=== PATIENT | female | born 1955 | race Caucasian/White ===

== ENCOUNTER 2024-11-18 10:06 | Outpatient (AMB) | payer MEDICARE, SELFPAY ==
--- NOTE | 2024-11-18 10:14 | A.OFFVIS_ITS ---
Intake Visit Reasons: 1 Year / SZ Allergies rofecoxib (From Vioxx) Allergy (Unknown, Verified 11/18/24 10:16) Unknown Sulfa (Sulfonamide Antibiotics) Allergy (Unknown, Verified 11/18/24 10:16) Unknown Medication List - Last Reconciled 11/18/24 by Ros Prince CNP levothyroxine 137 mcg PO 6XW metoprolol succinate ER 50 mg PO DAILY phenytoin sodium extended 100 mg orally 1 cap in the morning and 2 caps in the evening; 90 days romosozumab-aqqg (Evenity) 210 mg subcut QMONTH rosuvastatin 10 mg PO DAILY HPI Comments Details: She was doing okay. No seizures. She was taking Evenity for osteoporosis and would be starting reclast infusion in 03/2025. Playing pickleball and starting [employer] weight training with personal financial planner. She had some questions about medications and timing of administration. Compliant with medications. No medication side effects. Last partial seizure around 2014. No GM sz since late 20s. Retired in 2022. No further bouts of SVT, following with wire mesh knitter in [place]. History of seizure disorder treated by Dr. Cunha >20 years ago. She was taken off her Dilantin around 2002 after normal EEG. She remained seizure-free except for about 4 or 5 spells that were a few months apart, lasting 10-15 seconds starting around 2011. It starts with a feeling of it coming on for a couple seconds followed by 5-10 seconds of feeling hot, slightly confused, and having some racing thoughts which she doesn't remember afterward. She is aware of her surroundings and thinks that she is able to respond. She restarted Dilantin 300mg/day on 08/26/2012 because of mildly abnormal EEG. She fell while running in 07/2015 and fx right wrist. Her son has seizures treated with lamotrigine. [facility] Medical History (Updated 11/18/24 @ 10:15 by Ros Prince CNP) Osteoporosis Seizure disorder Review of Systems Const Denies chills, Denies daytime sleepiness, Denies difficulty sleeping, Denies fatigue, Denies fever(s), Denies frequent falls, Denies headache(s), Denies increased appetite, Denies poor appetite, Denies snoring, Denies weakness, Denies weight gain and Denies weight loss Eyes Denies loss of vision ENT Denies vertigo, Denies dizziness, Denies headache(s) and Denies neck pain Card Denies chest pain at rest, Denies chest pain with activity, Denies syncope, Denies leg edema, Denies palpitations, Denies dyspnea and Denies dyspnea on exertion Resp Denies cough, Denies dyspnea, Denies dyspnea on exertion and Denies snoring GI Denies abdominal pain, Denies constipation, Denies heartburn, Denies diarrhea and Denies nausea Denies urinary frequency, Denies urinary incontinence and Denies urinary urgency Musc Denies abnormal gait, Denies back pain, Denies myalgias, Denies arthralgias, Denies neck pain, Denies numbness and Denies tingling Neuro Denies abnormal gait, Denies vertigo, Denies dizziness, Denies syncope, Denies frequent falls, Denies headache(s), Denies lack of coordination, Denies loss of vision, Denies memory loss, Denies numbness, Denies Other visual disturbances, Denies restless legs, Denies seizure-like activity, Denies tingling, Denies paresthesias, Denies tremor(s) and Denies weakness Psych Denies anxiety, Denies depression, Denies auditory hallucinations, Denies memory loss and Denies visual hallucinations Endo Denies fatigue and Denies palpitations Physical Exam Const Other: General Appearance:? normal, in no acute distress. Heart:? S1, S2 normal, no murmurs. Lungs:? clear anteriorly and posteriorly. Musculoskeletal:? normal. Extremities:? no edema. Psych:? alert, oriented, cognitive function intact, cooperative with exam. Neuro Other: Abnormal Neurological Findings:?none.? Mental Status: alert and oriented X 3. Normal attention, orientation, memory, and affect. Cranial Nerves: Pupils are equal, round, and reactive to light. External ocular muscles are intact. Visual turner are full, no ptosis. Face is symmetrical, no facial weakness or droop. Facial sensations are normal. Tongue protrudes in midline. Palate elevates symmetrically. Shoulder shrugging is normal Motor Examination: Normal muscle tone, bulk and strength. No atrophy or fasciculations. No drift of the extended upper extremities. DTR 2+. Plantars are flexor. Sensory Exam: Normal light touch, temperature, pinprick, vibration, and joint- position sensations. Rhomberg sign is absent. Coordination: No ataxia. No titubation. Iloyda-ky-jlcf, viji-bqbg-fgkr test, and rapid alternating movements were normal. Gait Exam: Within normal limits. Cerebellar Signs: Cwoivv-gi-bkfk and blfc-dc-sbkg is normal. No dysdiadochokinesia. Extrapyramidal System: No tremor, rigidity with normal facial expressions. No bradykinesia. No bradyphrenia. Normal arm swing and posture. No propulsion or retropulsion. Speech: Normal. No dysphasia or dysarthria. Results Reviewed Results Reviewed: 09/27/22 EEG- Borderline abnormal EEG with occasional sharp transients and bilateral surging amplitude sharp waves suggestive of a paroxysmal disorder. 09/2022 Dilantin level was 5 at a trough level. Assessment & Plan Assessment & Plan (1) Seizure disorder: Code(s): G40.909 - Epilepsy, unspecified, not intractable, without status epilepticus Category: Medical Plan: Questions answered. Continue phenytoin sodium extended capsule 100mg 1 capsule in the morning and 2 capsules in the evening. Dilantin level ordered. Orders: Orders Phenytoin Dilantin Today G40.909 - Epilepsy, unspecified, not intractable, without status epilepticus Coding Level of Care Code Est Pt Level 4 (38082) Diagnoses Seizure disorder G40.909
--- OUTSIDE RECORDS SUMMARY | 2024-11-18 11:51 | XMS_ITS | Encounter Summary ---
Author Organization [facility] Address [address] [facility] [address] [place] [address] Care Team Providers Care Office Clinician Name Role Finance Business PartnerEvan Hutton MD Primary Care Provider [phone] Reason for Visit * Reason Comments New Med Request Encounter Details Date Type Department Care Team (Late st Contact Info) Description 04/03/2022 Refill [facility] Arrhythmia [address] [facility] [address] [place] [id number] Mike Cifuentes MD [address] [place] [address] SVT (supraventricular tachycardia) (Primary Dx) Social History Tobacco Use Types Packs/Day Years Used Date Smoking Tobacco: Never Assessed Comments Unknown Sex and Gender Information Value Date Recorded Sex Assigned at Not on file Legal Sex Female 3:16 AM EST Gender Identity Not on file Sexual Orientation Not on file documented as of this encounter Plan of Treatment Not on file documented as of this encounter Visit Diagnoses Diagnosis SVT (supraventricular tachycardia) (Multi-HCC)- Primary Other specified cardiac dysrhythmias documented in this encounter Care Teams Office Clinician Relationship Specialty Start Date End Date Evan Hutton MD PCP - General 04/15/21 documented as of this encounter
--- OUTSIDE RECORDS SUMMARY | 2024-11-18 11:51 | XMS_ITS | Clinical Summary ---
Author Organization [facility] Address [address] [place] [id number] Phone Care Team Providers Care Cable Installer Repairer Name Role Phone Lavell Baugh MD Primary Care Provider [phone] Social History Tobacco Use Types Packs/Day Years Used Date Smoking Tobacco: Never Smokeless Tobacco: Never Education Answer Date Recorded Are you interested in more education? Not on khadijah e 07/07/2022 Are you concerned about learning? Not on file 07/07/2022 No 07/07/2022 No 07/07/2022 Digital Access Answer Date Recorded No 08/05/2022 No 08/05/2022 No 08/05/2022 Reliable internet access at home? Not on file 08/05/2022 Device with a working camera? Not on file Comments Unknown Sex and Gender Information Value Date Recorded Sex Assigned at Not on file Legal Sex Female 10:49 AM EDT Gender Identity Not on file Sexual Orientation Not on file Last Filed Vital Signs Vital Sign Reading Time Taken Comments Blood Pressure 120/57 12/27/2017 10:26 AM EDT Pulse 85 12/27/2017 10:26 AM EDT Temperature 36.3 C (97.3 F) 12/27/2017 10:26 AM EDT Respiratory Rate - - Oxygen Saturation 96% 12/27/2017 10:26 AM EDT Inhaled Oxygen Concentration - - Weight 58.1 kg (128 lb) 12/27/2017 10:26 AM EDT Height 167.6 cm (5' 6 ) 12/27/2017 10:26 AM EDT Body Mass Index 20.66 12/27/2017 10:26 AM EDT Plan of Treatment Health Maintenance Due Date Last Done Comments LIPID PANEL 1955 DEPRESSION SCREENING 1967 HEPATITIS C SCREENING 08/14/1973 MAMMOGRAM 1995 COLOGUARD 08/14/2000 COLONOSCOPY 08/14/2000 COLORECTAL CANCER SCREENING 08/14/2000 FIT TEST 08/14/2000 FOBT 08/14/2000 SIGMOIDOSCOPY 08/14/2000 VIRTUAL COLONOSCOPY 08/14/2000 ZOSTER VACCINES (1 of 2) 08/14/2005 OSTEOPOROSIS SCREENING INITIAL (ONE-TIME) 08/14/2020 PNEUMOCOCCAL VACCINES (50+ years) (2 of 2 - PCV) 05/19/2021 05/19/2020 INFLUENZA VACCINE (#1) 2024 9, 01/02/2018, 12/04/2017, Additional history exists COVID-19 VACCINE ( - 2024- season) 2024 06/27/2020, 06/05/2020 Adult Td,Tdap Booster 01/10/2029 01/10/2019 , 05/27/2012, 12/01/2005 RSV VACCINE (1 - 1-dose 75+ series) 08/14/2030 SMOKING STATUS SCREENING (Once After 26 Yrs) Completed 12/27/2017 HEPATITIS A VACCINES Aged Out No long er eligible based on patient's age to complete this topic HIB VACCINES Aged Out No longer eligi ble based on patient's age to complete this topic MENINGOCOCCAL VACCINES (ACWY) Aged Out No longer eligible based on patient's age to complete this topic MENINGOCOCCAL VACCINES (B) Aged Out N o longer eligible based on patient's age to complete this topic Medical Devices Not on file Insurance [facility] TOTAL CHOICE INDEMNITY [employer] [facility] TOTAL CHOICE INDEMNITY [employer] [facility] TOTAL CHOICE INDEMNITY [employer] [facility] TOTAL CHOICE INDEMNITY [employer] [facility] TOTAL CHOICE INDEMNITY [employer] [facility] TOTAL CHOICE [facility]DEMNITY [employer] [facility] TOTAL CHOICE INDEMNITY [facility]OTAL CHOICE [facility]ITY [facility] TOTAL CHOICE INDEMNITY Care Teams Cable Installer Repairer Relationship Specialty Start Date End Date Lavell Baugh MD [address] [place] [id number] PCP - General Internal Medicine 12/19/17 Additional Source Comments The information contained in this document represents components of the legal health record. It is not the complete legal health record.[facility]
--- OUTSIDE RECORDS SUMMARY | 2024-11-18 11:51 | XMS_ITS | Clinical Summary ---
Author Organization [facility] Address [address] [address] Care Team Providers Care Incident Commander Name Role Live Games DealerEvan Hutton MD Primary Care Provider [phone] Medications metoprolol tartrate (Lopressor) 25 mg tabletIndicatio ns:SVT (supraventricul ar tachycardia) (Multi-HCC) Take 1 tablet (25 mg) by mouth in the morning and at bedtime. 60 tablet 1 04/03/2022 Active Social History Tobacco Use Types Packs/Day Years Used Date Smoking Tobacco: Never Assessed Comments Unknown Sex and Gender Information Value Date Recorded Sex Assigned at Not on file Legal Sex Female 3:16 AM EST Gender Identity Not on file Sexual Orientation Not on file Last Filed Vital Signs Vital Sign Reading Time Taken Comments Blood Pressure 104/60 09/27/2020 1:45 PM EDT Pulse 48 09/27/2020 1:45 PM EDT Temperature - - Respiratory Rate 16 09/27/2020 1:45 PM EDT Oxygen Saturation 100% 09/27/2020 1:45 PM EDT Inhaled Oxygen Concentration - - Weight 58.1 kg (128 lb) 09/27/2020 1:45 PM EDT Height 167.6 cm (5' 6 ) 09/27/2020 1:45 PM EDT Body Mass Index 20.66 09/27/2020 1:45 PM EDT Plan of Treatment Not [place] [id number] [address] [place] [place] [phone] [place] [id number] Care Teams Incident Commander Relationship Specialty Start Date End Date Evan Hutton MD PCP - General 04/15/21
--- OUTSIDE RECORDS SUMMARY | 2024-11-18 11:51 | XMS_ITS | Clinical Summary ---
Author Organization [facility] Address [address] [facility] [place] [place] [address] Care Team Providers Care Blender / Cook Name Role Phone No, Pcp SALESPERSON MEATS Primary Care Provider Unavailabl e Social History Tobacco Use Types Packs/Day Years Used Date Smoking Tobacco: Never Assessed Comments Unknown Sex and Gender Information Value Date Recorded Sex Assigned at Female 07/09/2021 3:21 PM EDT Legal Sex Female 12:52 PM EST Gender Identity Female 07/09/2021 3:21 PM EDT Sexual Orientation Straight 07/09/2021 3: 21 PM EDT Plan of Treatment Health Maintenance Due Date Last Done Comments Colorectal Cancer: COLONOSCO PY Screening every 10 yrs (or Modifier) 1955 Depression: Screening Annual ly using PHQ-2/9 in Adults 18 yrs or above (or HM Modifier)([facility]) 08/14/1973 Hepatitis C Virus Infection in Adolescents and Adults: Screening (or Modifier) ([facility]) 08/14/1973 SDOH Screening Reminder: Kristy fay for all adults ([facility]) 08/14/1973 Tobacco Smoking Cessation: i n Adults excluding Women: Behavioral and Pharmacotherapy Interventions ([facility]) 08/14/1973 DTaP/Tdap/Td Vaccines ([facility]) (1 - Tdap) 08/14/1974 Colorectal Cancer Screening 45 -75 Yrs (or HM Modifier ) 08/14/2000 Colorectal Cancer: FLEXIBLE SIGMOIDOSCOPY Screening every 5 yrs 08/14/2000 Colorectal Cancer: Fecal Imm unochemical Test (FIT) Annually [facility] 08/14/2000 Colorectal Cancer: High-sens itivity gFOBT Screening Annually [facility] 08/14/2000 Colorectal Cancer: Stool Col oguard Screening every 3 yrs 08/14/2000 Colorectal Cancer:CT Colonography Screening every 5 yr s 08/14/2000 Breast Cancer: Screening Kristy nya age 50-74 yrs (or HM Modifier)([facility]) 08/14/2005 Pneumococcal Vaccination Scr eening: Patients 50+ yrs of age ([facility]) (1 of 1 - PCV) 08/14/2005 Zoster/Shingles Vaccine Seri es Screening: Adults aged 18+ yrs (or HM Modifiers)([facility]) (1 of 2) 08/14/2005 Osteoporosis Screening to Pr event Fractures: Women aged 65 years+ ([facility]) 08/14/2020 COVID-19 Vaccine Screening: Initial Series and Booster Status ([facility]) ( - 2023- season) 2023 Flu Vaccination: Ages 65+: Y early High Dose Recommended (or Modifier)([facility]) 10/10/2024 RSV Vaccines (1 - 1-dose 75+ series) 08/14/2030 Medical Devices Not on file Insurance [facility] Care Teams Blender / Cook Relationship Specialty Start Date End Date No, Pcp, SALESPERSON MEATS N/A Do not use PCP - General Family Medicine 02/16/20
--- OUTSIDE RECORDS SUMMARY | 2024-11-18 11:51 | XMS_ITS ---
Author Name [facility] Organization Unknown Care Team Organization Name Specialty Phone Email Start Date End [facility] 10/29/2024
== END 2024-11-18 10:38 | disposition home or self-care (01) ==
LOC: HO.HSM 10:07
PROVIDERS: Visit Provider Registered Nurse
DX: G40.909 Epilepsy, unspecified, not intractable, without status epilepticus (principal)
CPT/HCPCS: 99214

== ENCOUNTER → 2024-11-18 10:06 | Outpatient (BNVA) | payer MEDICARE, SELFPAY | PROVIDERS: Visit Provider Registered Nurse | DX: G40.909 Epilepsy, unspecified, not intractable, without status epilepticus (principal) | CPT/HCPCS: 99212 ==